=== PATIENT | male | born 1985 | race Caucasian/White ===

== ENCOUNTER 2020-03-13 09:16 | Emergency (ER) | payer OTHER ==
[2020-03-13] MEDS ORDERED: BUFFERED LIDOCAINE 10 ML SYRINGE SUBQ STA (10:00)
--- NOTE | 2020-03-13 10:25 | ED Physician Documentation ---
PD HPI HEAD INJURY - Stated complaint Stated Complaint: FOREHEAD LAC - Chief complaint Chief Complaint: General - History obtained from History obtained from: Patient - History of Present Illness Mechanism of head injury: Fell, Other Timing - onset: Today Location of injury: Left, Front, Back Quality of pain: Pain Associated symptoms: LOC, Nausea / vomiting. 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 He has a laceration to the occiput and to the left eyebrow. He feels well now and indicates that last night he ate something made by a friend that included raw razor clams, raw hamburger and raw fish. He felt sick to his stomach this morning when he went into the bathroom and he feels well now. Review of Systems Constitutional: denies: Fever, Chills, Myalgias, Fatigue Eyes: denies: Decreased vision Ears: denies: Ear pain Nose: denies: Rhinorrhea / runny nose, Congestion Throat: denies: Sore throat Cardiac: denies: Chest pain / pressure, Palpitations Respiratory: denies: Dyspnea, Cough GI: reports: Nausea, Vomiting, Diarrhea : denies: Dysuria, Frequency Skin: denies: Rash Musculoskeletal: denies: Neck pain, Back pain Neurologic: reports: Syncope, Head injury. denies: Generalized weakness, Focal weakness, Numbness, Difficulty speaking, Seizure, Confused, Altered mental status, Headache PD PAST MEDICAL HISTORY - Past Medical History Past Medical History: No Cardiovascular: None Respiratory: None Neuro: None Endocrine/Autoimmune: None GI: None : None HEENT: None Psych: None Musculoskeletal: None Derm: None - Past Surgical History Past Surgical History: Yes - Allergies Allergies/Adverse Reactions: Allergies Allergy/AdvReac Type Severity Reaction Status Date / Time No Known Drug Allergies Allergy Verified 03/13/20 09:51 - Social History Does the pt smoke?: No Smoking Status: Never smoker Does the pt drink ETOH?: Yes Does the pt have substance abuse?: No - Immunizations Immunizations are current?: Yes PD ED PE NORMAL - Vitals Vital signs reviewed: Yes (normal ) - General General: Alert and oriented X 3, No acute distress, Well developed/nourished - HEENT HEENT: PERRL, EOMI, Other (There is a 2cm laceration to the occiput and to the left lateral eyebrow. There is no involvement of deeper structures the wounds appear clean and are approximated well.) - Neck Neck: Supple, no meningeal sign, No bony TTP - Respiratory Respiratory: No respiratory distress - Derm Derm: Normal color, Warm and dry - Extremities Extremities: No deformity, No edema, No calf tenderness / cord - Neuro Neuro: Alert and oriented X 3, environmental services lead 2-12 intact, No motor deficit, No sensory deficit, Normal speech Eye Opening: Spontaneous Motor: Obeys Commands Verbal: Oriented GCS Score: 15 - Psych Psych: Normal mood, Normal affect Results - Vitals Vitals: Vital Signs - 24 hr 03/13/20 09:51 Temperature 36.5 C Heart Rate 85 Respiratory 16 Rate Blood Pressure 128/77 O2 Saturation 99 Oxygen O2 Source Room air Procedures - Laceration (location) scalp Length in cm: 2 Wound type: Linear Neurovascular status: Sensory intact, Motor intact, Vascular intact Anesthesia: Lidocaine 1%, With bicarb Wound Preparation: Hibiclens, Irrigated copiously NS, Wound explored, To the base Skin layer closure: Cornel Other: Patient tolerated well, No complications, Neurovascular intact, Dressing applied, Tetanus UTD Complexity: Simple left eyebrow Length in cm: 2 Wound type: Linear, Clean Neurovascular status: Sensory intact, Motor intact Wound Preparation: Hibiclens, Irrigated copiously NS, Wound explored, To the base Skin layer closure: Dermabond Other: Patient tolerated well, No complications, Neurovascular intact, Dressing applied, Tetanus UTD Complexity: Simple PD MEDICAL DECISION MAKING - ED course Complexity details: reviewed results, re-evaluated patient, considered differential, d/w patient ED course: 34-year-old male with a syncopal episode while on the commode this morning with some GI upset appears well now. He has a laceration to his scalp into his eyelid these are repaired with cornel and Dermabond patient tolerates this well. I do not suspect intracranial hemorrhage or worse head injury than described. I believe the syncopal episode was related to his GI upset and this now appears resolved. Departure - Departure Disposition: 01 Home, Self Care Clinical Impression: Occipital scalp laceration Qualifiers: Encounter type: initial encounter Qualified Code(s): S01.01XA - Laceration without foreign body of scalp, initial encounter Eyebrow laceration Qualifiers: Encounter type: initial encounter Laterality: left Qualified Code(s): S01.112A - Laceration without foreign body of left eyelid and periocular area, initial encounter Condition: Stable Instructions: ED Laceration Facial Skin Glue, ED Laceration Scalp Stitch Or Stap Follow-Up: JOE Spivey [Provider Group] Comments: Cornel will need to be removed in 7 to 10 days.
[2020-03-13 10:56] VITALS: BP 108/72
== END 2020-03-13 10:56 | disposition home or self-care (01) ==
LOC: ED 09:16
DX: S01.01XA Laceration without foreign body of scalp, initial encounter (principal); S01.112A Laceration without foreign body of left eyelid and periocular area, initial encounter; W18.12XA Fall from or off toilet with subsequent striking against object, initial encounter; R55 Syncope and collapse; R10.9 Unspecified abdominal pain; R11.0 Nausea; R19.7 Diarrhea, unspecified
CPT/HCPCS: 12001; 12011; 99283; 99284